=== PATIENT | female | born 1935 | race African-American/Black ===

== ENCOUNTER 2022-03-08 19:18 | Emergency (ER) | payer OTHER ==
[~2022-03-08] VITALS: Ht 162.6 cm; Wt 77.0 kg
[2022-03-08] MEDS ORDERED: ONDANSETRON HCL 4MG/2ML INJ IV STA (19:48)
[2022-03-08] MEDS ORDERED: SODIUM CHLORIDE 0.9% 1,000 ML IV ONE (20:00)
[2022-03-08 21:35] LABS: BASOPHILS % 0.4 % (0.0-2.0); EOSINOPHILS % 0.2 % (0.0-5.0); HEMATOCRIT. 47.3 % (36.0-48.0); HEMOGLOBIN. 15.3 g/dL (12.0-16.0); LYMPHOCYTES % 9.7 % (20.0-50.0); MEAN CORPUSCULAR HEMOGLOBIN 28.3 pg (28.0-32.0); MEAN CORPUSCULAR VOLUME 87.4 fL (81.0-99.0); MEAN PLATELET VOLUME 8.2 fl (7.4-10.4); MONOCYTES % 4.9 % (2.0-8.0); NEUTROPHILS % 84.8 % (40.0-76.0); PLATELET 224 x1000/uL (130-400); RED BLOOD CELL COUNT 5.42 mill/uL (4.2-5.4)
[2022-03-08 21:38] LABS: CHLORIDE 105 mEq/L (98-107)
[2022-03-08] MEDS ORDERED: HYDRALAZINE 20MG/ML VIAL IV ONE (22:30)
[2022-03-09] MEDS ORDERED: ONDANSETRON HCL 4MG/2ML INJ IV NR (00:30)
[2022-03-09] MEDS ORDERED: HYDRALAZINE 20MG/ML VIAL IV NR (00:30)
[2022-03-09 02:00] VITALS: BP 183/55
== END 2022-03-09 03:00 | disposition short-term general hospital (02) ==
LOC: EDBD → ER 19:18
DX: G93.40 Encephalopathy, unspecified (principal); E11.9 Type 2 diabetes mellitus without complications; I10 Essential (primary) hypertension; Z88.0 Allergy status to penicillin
CPT/HCPCS: 36415; 70450; 71045; 80053; 82962; 83690; 85025; 93005; 96374; 96375; 99285; J0360; J2405; J7030

== ENCOUNTER 2022-03-09 22:19 | Emergency (ER) | payer OTHER ==
[~2022-03-09] VITALS: Ht 160 cm; Wt 74.0 kg
[2022-03-09 23:05] LABS: BASOPHILS % 0.6 % (0.0-2.0); EOSINOPHILS % 1.6 % (0.0-5.0); HEMATOCRIT. 47.7 % (36.0-48.0); HEMOGLOBIN. 15.2 g/dL (12.0-16.0); LYMPHOCYTES % 12.1 % (20.0-50.0); MEAN CORPUSCULAR HEMOGLOBIN 28.4 pg (28.0-32.0); MEAN CORPUSCULAR VOLUME 88.9 fL (81.0-99.0); MEAN PLATELET VOLUME 7.8 fl (7.4-10.4); MONOCYTES % 6.4 % (2.0-8.0); NEUTROPHILS % 79.3 % (40.0-76.0); PLATELET 220 x1000/uL (130-400); RED BLOOD CELL COUNT 5.37 mill/uL (4.2-5.4); RED CELL DISTRIBUTION WIDTH 14.2 % (11.6-14.6)
[2022-03-09 23:12] LABS: CHLORIDE 105 mEq/L (98-107)
[2022-03-10] MEDS ORDERED: LEVOFLOXACIN 750MG PREMIX 150 ML IV ONE
[2022-03-10 04:57] VITALS: BP 159/70
== END 2022-03-10 05:04 | disposition short-term general hospital (02) ==
LOC: EDBD 22:19 → ER 22:19
DX: J18.9 Pneumonia, unspecified organism (principal); G93.49 Other encephalopathy; R53.1 Weakness; I10 Essential (primary) hypertension; Z89.9 Acquired absence of limb, unspecified; Z20.822 Contact with and (suspected) exposure to COVID-19; Z88.0 Allergy status to penicillin
CPT/HCPCS: 36415; 70450; 71045; 80053; 84484; 85025; 87040; 87426; 93005; 96365; 99285; C9803; J1956

== ENCOUNTER 2022-04-21 01:43 | Emergency (ER) | payer OTHER ==
[~2022-04-21] VITALS: Ht 157.5 cm; Wt 64.0 kg
[2022-04-21] MEDS ORDERED: SODIUM CHLORIDE 0.9% 1,000 ML IV ONE (02:00)
[2022-04-21 02:53] LABS: BASOPHILS % 0.3 % (0.0-2.0); EOSINOPHILS % 1.5 % (0.0-5.0); HEMATOCRIT. 45.8 % (36.0-48.0); HEMOGLOBIN. 14.9 g/dL (12.0-16.0); LYMPHOCYTES % 17.3 % (20.0-50.0); MEAN CORPUSCULAR HEMOGLOBIN 28.3 pg (28.0-32.0); MEAN CORPUSCULAR VOLUME 86.9 fL (81.0-99.0); MEAN PLATELET VOLUME 7.8 fl (7.4-10.4); MONOCYTES % 13.1 % (2.0-8.0); NEUTROPHILS % 67.8 % (40.0-76.0); PLATELET 211 x1000/uL (130-400); RED BLOOD CELL COUNT 5.27 mill/uL (4.2-5.4); RED CELL DISTRIBUTION WIDTH 14.7 % (11.6-14.6)
[2022-04-21 03:10] LABS: CHLORIDE 102 mEq/L (98-107)
[2022-04-21] MEDS ORDERED: LEVOFLOXACIN 750MG PREMIX 150 ML IV ONE (03:45)
[2022-04-21] MEDS ORDERED: ENALAPRIL 2.5MG/2ML VIAL 2ML IV ONE (05:30)
[2022-04-21] MEDS ORDERED: ENALAPRIL 1.25MG/ML VIAL 1ML IV NR (06:00)
[2022-04-21 06:22] LABS: CLARITY URINE CLEAR (CLEAR); COLOR URINE YELLOW (YELLOW); KETONES URINE NEGATIVE (NEGATIVE); LEUKOCYTE ESTERASE URINE TRACE (NEGATIVE); NITRITE URINE NEGATIVE (NEGATIVE); OCCULT BLOOD URINE NEGATIVE (NEGATIVE); PROTEIN URINE 2+ (NEGATIVE); SPECIFIC GRAVITY URINE 1.009 (1.005-1.030)
[2022-04-21 10:15] VITALS: BP 184/58
== END 2022-04-21 10:30 | disposition short-term general hospital (02) ==
LOC: ER 01:43
DX: U07.1 COVID-19 (principal); I10 Essential (primary) hypertension; E11.9 Type 2 diabetes mellitus without complications; Z89.9 Acquired absence of limb, unspecified; Z88.0 Allergy status to penicillin
CPT/HCPCS: 36415; 71045; 80053; 81003; 82962; 83605; 84145; 84484; 85025; 85379; 87040; 87426; 93005; 96361; 96365; 96375; 99291; C9803; J1956; J7030; J3490